=== PATIENT | female | born 1980 | race Caucasian/White ===

== ENCOUNTER 2022-08-13 07:42 | Emergency (ER) | payer OTHER ==
[2022-08-13] MEDS ORDERED: Morphine 4 MG/ML VIAL ONE (09:28)
[2022-08-13] MEDS ORDERED: Ketorolac Tromethamine 30 MG/ML VIAL ONE (09:28)
== END 2022-08-13 09:35 | disposition home or self-care (01) ==
LOC: CSHERS 07:42
DX: K02.9 Dental caries, unspecified (principal); I10 Essential (primary) hypertension; E78.5 Hyperlipidemia, unspecified; G43.909 Migraine, unspecified, not intractable, without status migrainosus; F17.210 Nicotine dependence, cigarettes, uncomplicated
CPT/HCPCS: J1885; J2270

== ENCOUNTER 2022-08-14 12:29 | Inpatient (IN) | payer OTHER ==
[~2022-08-14 12:29] MED LIST: Iopamidol 370 76% 100 ML VIAL ONE
[2022-08-14] MEDS ORDERED: Morphine 4 MG/ML VIAL ONE (13:16)
[2022-08-14] MEDS ORDERED: Acetaminophen 500 MG TAB ONE (13:16)
[2022-08-14] MEDS ORDERED: Ondansetron PF 4 MG/2 ML Vial ONE (13:16)
[2022-08-14 13:32] LABS: #Basophils 0.1 10x3/uL (0.0-0.2); #Monocytes 1.4 10x3/uL (0.0-1.1); #Neutrophils 16.2 10x3/uL (1.5-8.4); %Basophils 0.4 % (0.0-2.0); %Eosinophils 0.1 % (0.0-6.0); %Lymphocytes 7.8 % (18.0-47.0); %Monocytes 7.3 % (0.0-10.0); Hemoglobin 15.6 g/dL (12.0-15.5); Mean Corpuscular HGB CONC 36.2 g/dL (32.0-36.0); Mean Corpuscular Hemoglobin 29.9 pg (27.0-33.0); Mean Corpuscular Volume 82.7 fl (81.6-98.3); Mean Platelet Volume 9.9 fl (7.4-10.4); Platelet Count 206 10x3/uL (150-450); RBC Distribution Width 13.4 % (11.5-14.5); Red Blood Cell (RBC) Count 5.21 10x6/uL (3.90-5.03); White Blood Cell (WBC) Count 19.5 10x3/uL (3.5-10.5)
[2022-08-14] MEDS ORDERED: Famotidine/PF 20 mg/2ml Vial ONE (13:36)
[2022-08-14] MEDS ORDERED: methylPREDNISolone Sod Succ 40 MG VIAL ONE (13:36)
[2022-08-14] MEDS ORDERED: Cefepime 2 GM VIAL ONE (13:37)
[2022-08-14] MEDS ORDERED: diphenhydrAMINE 50 MG/ML VIAL ONE (13:37)
[2022-08-14 13:39] LABS: BHCG - Serum Negative (NEGATIVE); Pregs Control Background? CLEAR/WHITE (CLR/WHITE); Pregs Control Bar Appear? YES (CONTROL BAR)
[2022-08-14 13:43] LABS: ALT (SGPT) 584 U/L (8-55); AST (SGOT) 303 U/L (5-34); Albumin 4.4 g/dL (3.5-5.0); Alkaline Phosphatase 141 U/L (40-110); Anion Gap 16 mmol/L (10-20); BUN (Urea Nitrogen) 9 mg/dL (7.0-18.7); Bilirubin, Total 2.4 mg/dL (0.2-1.2); Calc. Creatinine Clearance 0 mL/min (70-130); Calcium 9.5 mg/dL (7.8-10.44); Carbon Dioxide 27 mmol/L (22-29); Chloride 96 mmol/L (98-107); Estimated GFR 97; Globulin 3.3 g/dL (2.4-3.5); Glucose 263 mg/dL (70-105); Potassium 2.9 mmol/L (3.5-5.1); Protein, Total 7.7 g/dL (6.0-8.3); Sodium 136 mmol/L (136-145)
[2022-08-14] MEDS ORDERED: Vancomycin 1.5 GRAM/300 ML BAG 1.5 GM in Premix Bag 1 BAG IVPB SCH (14:00)
[2022-08-14] MEDS ORDERED: Potassium Chloride 20 MEQ TAB ONE (14:08)
[2022-08-14] MEDS ORDERED: Potassium Bicarbonate/Cit Ac 25 MEQ TAB PO SCH (14:30)
[2022-08-14] MEDS ORDERED: Potassium Bicarbonate/Cit Ac 25 MEQ TAB ONE (15:13)
[2022-08-14] MEDS ORDERED: Midazolam HCl 2 mg/2 ml Vial ONE (15:39)
[2022-08-14] MEDS ORDERED: Morphine 2 MG/ML VIAL ONE (16:14)
[2022-08-14 20:14] VITALS: BMI 38.2
[2022-08-14] MEDS ORDERED: Dextrose 50% Abboject 50 ML SYRINGE SLOW IVP PRN (20:16)
[2022-08-14] MEDS ORDERED: Dextrose 5% in Water 1,000 ML IV PRN (20:16)
[2022-08-14] MEDS ORDERED: Zolpidem Tartrate 5 MG TAB PO PRN (20:17)
[2022-08-14] MEDS ORDERED: Calcium Carbonate 500 MG ChewTAB PO PRN (20:17)
[2022-08-14] MEDS ORDERED: Guaifenesin DM 100-10/5 ML UDCUP PO PRN (20:17)
[2022-08-14] MEDS ORDERED: Ondansetron PF 4 MG/2 ML Vial IVP PRN (20:17)
[2022-08-14] MEDS ORDERED: Senokot S 8.6-50 MG TAB PO PRN (20:17)
[2022-08-14] MEDS ORDERED: ALPRAZolam 0.25 MG TAB PO PRN (20:21)
[2022-08-14 20:55] LABS: Acetaminophen Less than 10.0 mcg/mL (10.0-30.0)
[2022-08-14] MEDS ORDERED: Lactated Ringer's 1,000 ML IV SCH (21:00)
[2022-08-14 21:15] LABS: MONO NEGATIVE CONTROL ZONE White (Negative) (White); MONO POSITIVE CONTROL Pink Line (Positive) (PINK/RED); Mononucleosis NEGATIVE (NEGATIVE)
[2022-08-14] MEDS ORDERED: glipiZIDE 5 MG TAB PO SCH (21:30)
[2022-08-14] MEDS: HumaLOG 300 UNITS/3 ML VIAL SC PRN (22:24)
[2022-08-14] MEDS: Morphine 2 MG/ML VIAL SLOW IVP PRN (22:26)
[2022-08-14] MEDS: Ampicillin/Sulbactam 3 GM in Sodium Chloride 0.9% 100 ML IVPB SCH (22:30)
[2022-08-14] MEDS: Nicotine 21 MG PATCH TD SCH (22:32)
[2022-08-15] MEDS: Lorazepam 0.5 MG TAB PO PRN ×2 (00:15→20:54)
[2022-08-15] MEDS: Ampicillin/Sulbactam 3 GM in Sodium Chloride 0.9% 100 ML IVPB SCH ×4 (04:18→20:53)
[2022-08-15 04:56] LABS: #Basophils 0.1 10x3/uL (0.0-0.2); #Monocytes 1.7 10x3/uL (0.0-1.1); #Neutrophils 12.3 10x3/uL (1.5-8.4); %Basophils 0.3 % (0.0-2.0); %Eosinophils 0.1 % (0.0-6.0); %Lymphocytes 12.8 % (18.0-47.0); %Monocytes 10.4 % (0.0-10.0); Mean Corpuscular HGB CONC 35.4 g/dL (32.0-36.0); Mean Corpuscular Hemoglobin 29.9 pg (27.0-33.0); Mean Corpuscular Volume 84.2 fl (81.6-98.3); Platelet Count 201 10x3/uL (150-450); RBC Distribution Width 13.3 % (11.5-14.5); Red Blood Cell (RBC) Count 4.69 10x6/uL (3.90-5.03); White Blood Cell (WBC) Count 16.4 10x3/uL (3.5-10.5)
[2022-08-15 05:18] LABS: ALT (SGPT) 340 U/L (8-55); AST (SGOT) 90 U/L (5-34); Acetaminophen Less than 10.0 mcg/mL (10.0-30.0); Albumin 3.9 g/dL (3.5-5.0); Alkaline Phosphatase 116 U/L (40-110); Anion Gap 15 mmol/L (10-20); BUN (Urea Nitrogen) 8 mg/dL (7.0-18.7); Bilirubin, Total 1.1 mg/dL (0.2-1.2); Calc. Creatinine Clearance 186 mL/min (70-130); Calcium 9.1 mg/dL (7.8-10.44); Carbon Dioxide 27 mmol/L (22-29); Cardiac Risk 3.8 (Less than 4.5); Chloride 102 mmol/L (98-107); Cholesterol 129 mg/dl (< 200 Desired); Estimated GFR 115; Globulin 3.1 g/dL (2.4-3.5); Glucose 95 mg/dL (70-105); HDL Cholesterol 34 mg/dL (>60 Neg Risk); LDL Cholesterol, Calculated 64 mg/dL; Potassium 3.2 mmol/L (3.5-5.1); Sodium 141 mmol/L (136-145); Triglycerides 153 mg/dL (Less than 150)
[2022-08-15] MEDS: Morphine 2 MG/ML VIAL SLOW IVP PRN ×2 (08:11→18:32)
[2022-08-15] MEDS: Amlodipine 10 MG TAB PO SCH (08:15)
[2022-08-15] MEDS: Loratadine 10 MG TAB PO SCH (08:17)
[2022-08-15] MEDS: Ibuprofen 400 MG TAB PO PRN ×2 (08:33→16:00)
[2022-08-15] MEDS: HumaLOG 300 UNITS/3 ML VIAL SC PRN ×2 (08:51→22:05)
[2022-08-15] MEDS: HYDROcodone/Acetaminophen 10/325 mg Tablet PO PRN ×3 (12:08→20:53)
[2022-08-15] MEDS: hydrALAZINE 25 MG TAB PO PRN ×2 (12:15→15:59)
[2022-08-15 14:24] LABS: HBCM Index 0.17 S/CO (0-0.79); HBSAg Index 0.28 S/CO (0-0.99); Hep A IgM AB Non-Reactive S/CO (NonReactive); Hep A IgM S/CO 0.19 S/CO (0-0.79); Hep B Surf Ag Non-Reactive S/CO (NonReactive); Hepatitis B Core IgM Abs Non-Reactive S/CO (NonReactive)
[2022-08-15] MEDS ORDERED: Lidocaine 1% 20 ML MDV FS SCH (16:45)
[2022-08-15] MEDS ORDERED: Lidocaine 1% MPF 2 ML VIAL FS SCH (17:15)
[2022-08-15 20:50] LABS: Hep C IgG Ab Non-Reactive S/CO (NonReactive); Hep C Index 0.95 S/CO (0-0.79)
[2022-08-15] MEDS: Nicotine 21 MG PATCH TD SCH (20:53)
[2022-08-16] MEDS: Ampicillin/Sulbactam 3 GM in Sodium Chloride 0.9% 100 ML IVPB SCH ×2 (03:34→10:33)
[2022-08-16] MEDS: HYDROcodone/Acetaminophen 10/325 mg Tablet PO PRN ×2 (03:43→10:46)
[2022-08-16] MEDS: Amlodipine 10 MG TAB PO SCH (08:52)
[2022-08-16] MEDS: Loratadine 10 MG TAB PO SCH (08:52)
[2022-08-16 11:23] VITALS: BP 160/71; TEMP 98.8
== END 2022-08-16 13:30 | disposition home or self-care (01) | DRG 855 ==
LOC: CSHERS 12:29 → CSHPP 19:41
PROVIDERS: ADMIT Student in an Organized Health Care Education/Training Program; ATTEND Internal Medicine
PROC: 0CDWXZ0 Extraction of Upper Tooth, Single, External Approach (ICD-10-PCS; principal; 2022-08-15)
PROC: 0W930ZZ Drainage of Oral Cavity and Throat, Open Approach (ICD-10-PCS; 2022-08-15)
DX: A41.9 Sepsis, unspecified organism (principal); K04.7 Periapical abscess without sinus; M27.2 Inflammatory conditions of jaws; I10 Essential (primary) hypertension; E78.5 Hyperlipidemia, unspecified; E11.9 Type 2 diabetes mellitus without complications; F17.210 Nicotine dependence, cigarettes, uncomplicated; F41.9 Anxiety disorder, unspecified; Z90.49 Acquired absence of other specified parts of digestive tract; Z88.8 Allergy status to other drugs, medicaments and biological substances; Z79.899 Other long term (current) drug therapy; Z79.84 Long term (current) use of oral hypoglycemic drugs; Z90.89 Acquired absence of other organs; E87.6 Hypokalemia; E66.9 Obesity, unspecified; Z68.38 Body mass index [BMI] 38.0-38.9, adult; K02.9 Dental caries, unspecified; G43.909 Migraine, unspecified, not intractable, without status migrainosus
CPT/HCPCS: 10160; 36415; 36416; 70487; 76705; 80053; 80061; 80074; 80143; 83605; 83735; 84443; 84703; 85025; 86308; 87040; 87070; 87205; 93005; 94760; 96365; 96366; 96367; 96372; 96375; 96376; 99282; 80307; J0295; J0692; J1200; J1815; J1885; J2250; J2270; J2272; J2405; J2920; J3370; J3490; J7120; Q9967; S0028